=== PATIENT | female | born 1995 | race Caucasian/White ===

== ENCOUNTER → 2016-12-31 | Outpatient (CLI) | payer BC, OTHER ==
--- NOTE | 2017-01-04 14:39 | US ---
EXAM DESCRIPTION: Soft Tissue,Head/Neck CLINICAL HISTORY: 21 years Female, LYMPHADENOPATHY COMPARISON: None. FINDINGS: Ultrasound of the area of concern at the right side of the neck was performed. Is an ovoid 2.5 x 1.0 x 3.3 cm structure at the area of concern which likely represents the submandibular gland. No adenopathy or other right sided neck mass is identified. A few images of the left side of the neck also show a normal left submandibular gland without left-sided adenopathy. IMPRESSION: No adenopathy or other suspicious neck mass. If clinical suspicion persists, CT with IV contrast is recommended. Electronically signed by: Laureano Ferreira MD 01/04/2017 2:38 PM [facility]
== END | disposition home or self-care (01) ==
LOC: US 12-29 11:17
PROVIDERS: ATTEND Family Medicine
DX: R59.9 Enlarged lymph nodes, unspecified (principal)